=== PATIENT | male | born 1960 | race Hispanic/Latino ===

== ENCOUNTER 2021-11-28 05:44 | Observation (INO) | payer BC, OTHER ==
[~2021-11-28] VITALS: Ht 175.3 cm; Wt 99.8 kg
[~2021-11-28 05:44] MED LIST: CARVEDILOL12.5 MG PO; LISINOPRIL-HCT1 EAC2 PO; NEURONTIN300 MG PO; SODIUM CHLORIDE 0.9% 250ML 250 ML IV ONE; [UNRECOGNIZED DRUG - OTHER] PO
[2021-11-28] MEDS ORDERED: TRANEXAMIC ACID 20 ML ONE (06:35)
[2021-11-28] MEDS ORDERED: Vancomycin IV 1,000 MG ONE (06:35)
[2021-11-28] MEDS ORDERED: SODIUM CHLORIDE 0.9% 500ML 500 ML ONE (06:35)
[2021-11-28] MEDS ORDERED: DEXAMETHASONE SOD PHOS 10 MG/1 ML VIAL ONE (06:44)
[2021-11-28] MEDS ORDERED: CELECOXIB 200 MG CAP ONE (06:44)
[2021-11-28] MEDS ORDERED: GABAPENTIN 300 MG CAP ONE (06:44)
[2021-11-28] MEDS ORDERED: ROPIVACAINE 246.25 MG, EPINEPHRINE HCL 1:1000 1ML 0.5 MG, CLONIDINE HCL 0.08 MG, KETORO... INJ ONE ×5 (08:00)
[2021-11-28] MEDS ORDERED: HYDROCODONE/APAP 7.5MG-325MG 1 EA TAB PO PRN (08:15)
[2021-11-28] MEDS ORDERED: DOCUSATE SODIUM 100 MG CAP PO PRN (08:15)
[2021-11-28] MEDS ORDERED: DIPHENHYDRAMINE HCL INJ 50 MG/ML VIAL IV PRN (08:15)
[2021-11-28] MEDS ORDERED: SODIUM CHLORIDE 0.9% 1000ML 1,000 ML IV SCH (08:15)
[2021-11-28] MEDS ORDERED: ONDANSETRON HCL INJ 2MG/ML 2ML 2 MG/ML VIAL IV PRN (08:15)
[2021-11-28] MEDS ORDERED: HYDROCODONE/APAP 5MG-325MG TAB PO PRN (08:15)
[2021-11-28] MEDS ORDERED: HYDROMORPHONE 1MG/1ML INJ ONE ×2 (08:43→09:36)
[2021-11-28] MEDS ORDERED: ASPIRIN 325 MG TAB PO SCH (09:00)
[2021-11-28] MEDS ORDERED: CELECOXIB 100 MG CAP PO SCH (09:00)
[2021-11-28] MEDS ORDERED: Morphine 4mg INJECTION 4 MG/ML INJ ONE (09:05)
[2021-11-28 09:50] VITALS: BP 113/81
[2021-11-28 09:55] VITALS: BP 113/81
[2021-11-28] MEDS ORDERED: ACETAMINOPHEN 1000 MG/100 ML IV PRN (12:00)
[2021-11-28 12:10] VITALS: BP 101/57
[2021-11-28] MEDS ORDERED: HYDROCODON-ACE1 EA12 PO (12:20)
[2021-11-28] MEDS ORDERED: Morphine 10mg syringe 10 MG/ML INJ ONE (13:16)
[2021-11-28] MEDS ORDERED: MIDAZOLAM HCL 2 MG/2 ML VIAL ONE (13:16)
[2021-11-28] MEDS ORDERED: KETOROLAC TROMETHAMINE 30 MG/ML VIAL ONE (19:01)
[2021-11-28] MEDS ORDERED: ONDANSETRON HCL INJ 2MG/ML 2ML 2 MG/ML VIAL ONE (19:01)
[2021-11-28] MEDS ORDERED: POVIDONE IODINE 0.05% 0.05 % ML PO ONE (19:01)
[2021-11-28] MEDS ORDERED: DEXAMETHASONE SOD PHOS INJ 4 MG/ML SDV ONE (19:01)
[2021-11-28] MEDS ORDERED: METOCLOPRAMIDE HCL 10 MG/2ML VIAL ONE (19:01)
[2021-11-28] MEDS ORDERED: PROPOFOL IV EMULSION 10 MG/ML 20 ML VIAL ONE (19:01)
[2021-11-28] MEDS ORDERED: SEVOFLURANE INHAL SOLN 250 ML PEN BTL ONE (19:01)
[2021-11-28] MEDS ORDERED: ROPIVACAINE 0.5% 5 MG/ML 30 ML SDV ONE (19:31)
[2021-11-28] MEDS ORDERED: EPINEPHRINE HCL 1:1000 1ML 1 MG/ML AMP ONE (19:31)
== END 2021-11-28 15:33 | disposition home health service (06) ==
LOC: OR 05:44 → PACU V 09:20 → MED/SURG 09:55
PROVIDERS: ADMIT Specialist; ATTEND Specialist
DX: M17.0 Bilateral primary osteoarthritis of knee (principal); I10 Essential (primary) hypertension; Z20.822 Contact with and (suspected) exposure to COVID-19; Z01.818 Encounter for other preprocedural examination
CPT/HCPCS: 0223U; 36415; 86850; 86900; 86920; 94799; C1713; C1776; G0378; J0171; J0690; J1100; J1170; J1885; J2250; J2270; J2405; J2765; J2795; J3370; J7040

== ENCOUNTER 2021-12-15 08:52 | Emergency (ER) | payer BC ==
[~2021-12-15] VITALS: Ht 175.3 cm; Wt 99.8 kg
[~2021-12-15 08:52] MED LIST changes: +HYDROCODON-ACE1 EA12 PO; -SODIUM CHLORIDE 0.9% 250ML 250 ML IV ONE
[2021-12-15 10:20] LABS: BASOPHILS % 0.3 % (0.0-1.0); EOSINOPHILS # (AUTO) 0.1 (0.0-0.4); EOSINOPHILS % 0.9 % (0.0-6.0); HEMATOCRIT 40.1 % (38.2-49.6); HEMOGLOBIN 13.4 g/dL (14.0-18.0); LYMPHOCYTES # (AUTO) 1.9 (1.0-3.2); LYMPHOCYTES % 21.1 % (18.0-39.1); MEAN CORPUSCULAR HEMOGLOBIN 30.5 pg (28-32); MEAN CORPUSCULAR HGB CONC 33.4 g/dL (31-35); MEAN CORPUSCULAR VOLUME 91.1 fL (81-99); MONOCYTES # (AUTO) 0.8 (0.2-0.8); MONOCYTES % 9.1 % (4.4-11.3); NEUTROPHILS # (AUTO) 6.3 (2.1-6.9); NEUTROPHILS % 68.4 % (38.7-80.0); PLATELET COUNT 277 x10e3/uL (140-360); RED CELL DISTRIBUTION WIDTH 12.4 % (11.7-14.4)
[2021-12-15 10:32] LABS: AMPHETAMINES SCREEN,URINE NEGATIVE (NEGATIVE); BENZODIAZEPINES SCREEN,URINE NEGATIVE (NEGATIVE); PHENCYCLIDINE SCREEN,URINE NEGATIVE (NEGATIVE)
[2021-12-15 10:42] LABS: ALBUMIN 3.7 g/dL (3.5-5.0); ANION GAP 16.3 mmol/L (8-16); CALCIUM 8.9 mg/dL (8.4-10.2); CREATININE, SERUM 0.79 mg/dL (0.72-1.25); POTASSIUM 3.3 mmol/L (3.5-5.1)
[2021-12-15 10:50] LABS: CREATINE KINASE MB 1.1 ng/mL (0-5.0)
[2021-12-15] MEDS ORDERED: IOPAMIDOL 370 MG/ML 100 ML INFUS..BTL INJ ONE (11:21)
[2021-12-15 12:03] LABS: LYMPHOCYTES % (MANUAL) 21 % (19-48); MONOCYTES % (MANUAL) 7 % (3.4-9.0); NEUTROPHILS % (MANUAL) 72 % (40-74)
[2021-12-15 12:09] LABS: PLATELET ESTIMATE ADEQUATE; PLATELET MORPHOLOGY COMMENT NORMAL; RBC MORPHOLOGY COMMENT NORMAL
[2021-12-15] MEDS ORDERED: PREDNISONE20 MG PO (12:50)
[2021-12-15 12:51] VITALS: BP 146/78
== END 2021-12-15 12:52 | disposition home or self-care (01) ==
LOC: ER 08:58
DX: G89.18 Other acute postprocedural pain (principal); R07.89 Other chest pain; R07.0 Pain in throat; M25.561 Pain in right knee; I10 Essential (primary) hypertension; Z96.651 Presence of right artificial knee joint
CPT/HCPCS: 0223U; 36415; 71045; 71260; 80053; 80307; 82550; 82553; 83690; 83880; 84484; 85025; 85379; 93005; 93971; 99283; Q9967

== ENCOUNTER → 2021-12-19 | Outpatient (RCR) | payer BC ==
[~2021-12-19] MED LIST changes: +PREDNISONE20 MG PO
== END ==
LOC: PT 12-02 09:23
PROVIDERS: ATTEND Physician Assistant
DX: Z47.1 Aftercare following joint replacement surgery (principal); Z96.651 Presence of right artificial knee joint

== ENCOUNTER 2022-01-17 10:57 | Outpatient (RCR) | payer BC | END 2022-01-18 | LOC: PT 10:57 | PROVIDERS: ATTEND Physician Assistant | DX: Z47.1 Aftercare following joint replacement surgery (principal); Z96.651 Presence of right artificial knee joint ==

== ENCOUNTER 2022-03-14 13:56 | Outpatient (RCR) | payer BC | END 2022-03-21 | LOC: PT 13:56 | PROVIDERS: ATTEND Physician Assistant | DX: Z47.1 Aftercare following joint replacement surgery (principal); Z96.651 Presence of right artificial knee joint; M62.81 Muscle weakness (generalized); M25.561 Pain in right knee; M25.661 Stiffness of right knee, not elsewhere classified; R26.2 Difficulty in walking, not elsewhere classified ==

== ENCOUNTER 2022-08-16 13:47 | Emergency (ER) | payer BC ==
[~2022-08-16] VITALS: Ht 175.3 cm; Wt 99.8 kg
[2022-08-16 14:30] VITALS: O2SAT 99
[2022-08-16] MEDS ORDERED: IBUPROFEN600 MG PO (16:07)
[2022-08-16] MEDS ORDERED: PREDNISONE20 MG PO (16:07)
[2022-08-16] MEDS ORDERED: IBUPROFEN 600 MG TAB PO STA (16:08)
[2022-08-16] MEDS ORDERED: PREDNISONE 20 MG TAB PO ONE (16:15)
== END 2022-08-16 16:38 | disposition home or self-care (01) ==
LOC: ER 14:45
DX: M79.652 Pain in left thigh (principal); M71.22 Synovial cyst of popliteal space [Baker], left knee; I10 Essential (primary) hypertension; E11.9 Type 2 diabetes mellitus without complications; I25.10 Atherosclerotic heart disease of native coronary artery without angina pectoris; Z96.651 Presence of right artificial knee joint
CPT/HCPCS: 73502; 73552; 93971; 99284; J7512